=== PATIENT | male | born 1940 | race Caucasian/White ===

== ENCOUNTER 2022-01-23 08:44 | Outpatient (CLI) | payer MEDICARE, OTHER ==
--- NOTE | 2022-01-23 13:04 | Ultrasound Report ---
PROCEDURE: Carotid Doppler Complete INDICATIONS: VERTIGO TECHNIQUE: Color and pulse Doppler interrogation was performed of both carotid systems, with image documentation and velocity measurements. COMPARISON: None. FINDINGS: Right side: Brachial blood pressure: 175/97 mm Hg. Common carotid artery peak systolic velocity: 44 cm/sec. Internal carotid artery peak systolic velocity: 70 cm/sec. Internal carotid artery end diastolic velocity: 22 cm/sec. External carotid artery peak systolic velocity: 42 cm/sec. ICA/CCA peak systolic ratio: 1.6 . Delgado scale imaging description: Mild plaque Percent internal carotid artery stenosis: Widely patent vessel . Vertebral artery: Flow direction is antegrade. Left side: Brachial blood pressure: 161/91 mm Hg. Common carotid artery peak systolic velocity: 50 cm/sec. Internal carotid artery peak systolic velocity: 69 cm/sec. Internal carotid artery end diastolic velocity: 23 cm/sec. External carotid artery peak systolic velocity: 40 cm/sec. ICA/CCA peak systolic ratio: 1.38 . Delgado scale imaging description: Minimal plaque Percent internal carotid artery stenosis: Widely patent vessel . Vertebral artery: Flow direction is antegrade. IMPRESSION: 1. Minimal plaque, widely patent carotids, no evidence of subclavian steal phenomenon. The estimate of stenosis included in the report of the imaging study was calculated using the NASCET method Reviewed by: Carlo Maynard MD on 01/23/2022 1:02 PM PDT Approved by: Carlo Maynard MD on 01/23/2022 1:02 PM PDT Station ID: [id number]
== END 2022-01-23 08:45 | disposition home or self-care (01) ==
LOC: DI 08:44
PROVIDERS: ATTEND Physician Assistant Medical
DX: R42 Dizziness and giddiness (principal); I65.23 Occlusion and stenosis of bilateral carotid arteries
CPT/HCPCS: 93880